=== PATIENT | male | born 1980 | race Two or more races ===

== ENCOUNTER → 2017-01-29 | Outpatient (CLI) | payer OTHER ==
[~2017-01-29] MED LIST: AVELOX400 M1 PO; COUMADIN PO; COUMADIN4 MG PO; COUMADIN5 MG PO; LOVENOX SUBQ; LOVENOX100 MG/ML INJ; LOVENOX80 MG/0.8 INJ; METOPROLOL TAR25 MG PO; OMNICEF300 M1 PO; ONMEL200 MG PO; PAIN & FEVER325 MG PO; VORICONAZOLE200 MG PO; WARFARIN SODIUM4 M1 PO
--- NOTE | ~2017-01-29 | CT57 ---
[facility] A Service of [facility] & [facility] RADIOLOGY TEXT RESULTS PATIENT: ROLY WAGNER LOCATION: [facility] : 84 UNIT #: [id number] AGE: [address]: Sabino Simmons MD SEX: M ORDER DR: [id number] [facility] [address] [place], [place] [address] [id number] O MR#: [id number] Acc #: [id number] NAME: ROLY WAGNER : 1980 SEX: M STUDY DATE/TIME: 01/29/2017 9:59 UNIT: [facility] ROOM: STUDY DESCRIPTION: CT Chest Wo Cont Attending Physician: Sabino Simmons M.D. Referring Physician: Sabino Simmons M.D. Ordering Physician: Sabino Simmons M.D. Primary Care Physician: [facility] IMAGING REPORT This report is preliminary unless electronic signature is present EXAM CT chest without contrast, 01/29/2017 HISTORY Left lung surgery 2 months ago. History of aspergillosis. Followup. No current complaints. COMPARISON CT chest without contrast, 07/09/2016. PROCEDURE 5.0 mm axial images through the chest without contrast. Sagittal and coronal reformatted images were obtained. This CT exam was performed with one or more of the following radiation dose reduction techniques: automatic exposure control, adjustment of mA and/or kV according to patient size, and iterative reconstruction. FINDINGS Surgical chain sutures are seen within the left mid lung zone. There is either a loculated apical pneumothorax versus enlarged bullous change in the left apex. The left [id number]-ic-[id number] lung zone consolidations have largely resolved since 07/09/2016. There is, however, some residual left perihilar airspace opacity with pleural parenchymal thickening in the lateral left mid lung zone. Traction bronchiectasis is seen within the same vicinity, and postsurgical scarring is favored over that of residual infectious inflammatory airspace disease. The right lung is clear. Stable cardiomegaly with aortic valve replacement and surgical changes of ascending thoracic aorta. There is stable aneurysmal dilation of the proximal descending thoracic aorta, 3.5 cm and mid descending thoracic aorta, 3.2 cm. [facility]. [facility] A Service of [facility] RADIOLOGY TEXT RESULTS PATIENT: ROLY WAGNER LOCATION: [facility] : 84 UNIT #: [id number] AGE: [address]: Sabino Simmons MD SEX: M ORDER DR: Included portions of the upper abdominal organs are within normal limits. IMPRESSION 1. Left perihilar - midlung opacity with pleural parenchymal thickening in the left midlung. Traction bronchiectasis is seen in the same vicinity. These findings are favored to represent chronic scarring rather than that of acute airspace disease. 2. Surgical changes of partial left lung resection with chain sutures in the left upper lung zone and the periphery of the left midlung. 3. There is either a loculated left apical pneumothorax versus large apical bulla, which is new or increased compared to the CT from 07/09/2016. 4. Right lung remains clear. 5. Surgical changes of aortic valve replacement and ascending aortic repair. The aneurysmal dilation of the descending thoracic aorta appears stable. Dictated by... Denise Leonardo M.D. THIS IS AN ELECTRONICALLY VERIFIED REPORT Denise Leonardo M.D. at 01/30/2017 6:13 AM Enio TD: 01/29/2017 11:53 JOB #: [id number] MEDICAL IMAGING REPORT Page 1 of 1 COPY
== END | disposition home or self-care (01) ==
LOC: CCAT 09:32
DX: B44.9 Aspergillosis, unspecified (principal); I71.2 Thoracic aortic aneurysm, without rupture; J92.9 Pleural plaque without asbestos; J47.9 Bronchiectasis, uncomplicated; J98.4 Other disorders of lung; Z98.890 Other specified postprocedural states
CPT/HCPCS: 71250